=== PATIENT | female | born 1935 | race Two or more races ===

== ENCOUNTER 2018-09-26 15:10 | Emergency (ER) | payer OTHER ==
[~2018-09-26] VITALS: Ht 152.4 cm; Wt 53.5 kg
[2018-09-26] MEDS ORDERED: SYNTHROID88 MCG (15:52)
[2018-09-26] MEDS ORDERED: NORVASC2.5 M1 (15:53)
[2018-09-26] MEDS ORDERED: PLAVIX75 MG (15:53)
== END 2018-09-26 18:42 | disposition home or self-care (01) ==
LOC: ER 15:10
DX: S00.03XA Contusion of scalp, initial encounter (principal); S70.02XA Contusion of left hip, initial encounter; W01.198A Fall on same level from slipping, tripping and stumbling with subsequent striking against other object, initial encounter; Y93.89 Activity, other specified; Y92.238 Other place in hospital as the place of occurrence of the external cause; Y99.8 Other external cause status

== ENCOUNTER 2023-06-27 09:15 | Outpatient (CLI) | payer OTHER ==
[~2023-06-27 09:15] MED LIST: NORVASC2.5 M1; PLAVIX75 MG; SYNTHROID88 MCG
== END 2023-06-27 09:23 | disposition home or self-care (01) ==
LOC: TOM 09:15
PROVIDERS: ATTEND Internal Medicine
DX: M54.50 Low back pain, unspecified (principal)

== ENCOUNTER 2023-12-01 12:45 | Outpatient (CLI) | payer OTHER | END 2023-12-01 12:54 | disposition home or self-care (01) | LOC: MRI 12:45 | PROVIDERS: ATTEND Anesthesiology Pain Medicine | DX: M99.63 Osseous and subluxation stenosis of intervertebral foramina of lumbar region (principal); M48.061 Spinal stenosis, lumbar region without neurogenic claudication | CPT/HCPCS: 72148 ==

== ENCOUNTER 2023-12-26 08:25 | Outpatient (CLI) | payer OTHER ==
[2023-12-26 09:37] LABS: HEMATOCRIT 36.7 % (36.0-45.00); HEMOGLOBIN 12.2 g/dL (12.0-15.00); MEAN CELL VOLUME 88.6 fL (80.00-100.00); MEAN CORPUSCULAR HEMOGLOBIN 29.5 pg (27.00-32.0); MEAN CORPUSCULAR HGB CONC 33.3 g/dl (32.0-36.0); PLATELET COUNT 168 K/uL (150-450); RED BLOOD COUNT 4.14 M/uL (4.00-6.00); RED CELL DISTRIBUTION WIDTH 16.5 % (11.5-14.5)
[2023-12-26 09:40] LABS: PH,URINE 5.5 (5.0-8.0); URINE APPEARANCE Clear; URINE BILIRRUBIN Negative (NEGATIVE); URINE BLOOD Negative; URINE COLOR Yellow; URINE KETONE Negative (NEGATIVE); URINE LEUKOCYTE Trace; URINE NITRATE Positive; URINE PROTEIN Negative (NEGATIVE); URINE UROBILINOGEN 0.2 E.U./dl
[2023-12-26 09:41] LABS: URINE EPITHELIAL CELLS 8.8 uL (0.0-38.8); URINE RBC 20.3 uL (0.0-20.8); URINE WBC 30.2 uL (0.0-23.2)
[2023-12-26 09:46] LABS: URINE BACTERIA > 9821.5 uL (0.0-1933); URINE GLUCOSE >=1000 MG/DL (NEGATIVE)
[2023-12-26 10:40] LABS: ALBUMIN 3.7 gm/dL (3.4-5.0); BILIRUBIN TOTAL 0.37 mg/dL (0.3-1.2); CALCIUM 9.4 mg/dL (8.5-10.1); CREATININE SERUM 1.26 mg/dL (0.55-1.02); GFR 40.17; GLOBULINA 2.8 G/DL (2.4-3.5); POTASSIUM 4.24 mEq/L (3.5-5.1); TOTAL PROTEIN 6.5 gm/dL (6.4-8.2)
== END 2023-12-26 14:15 | disposition home or self-care (01) ==
LOC: LAB 08:25
PROVIDERS: ATTEND Anesthesiology Pain Medicine
DX: M99.63 Osseous and subluxation stenosis of intervertebral foramina of lumbar region (principal); M48.061 Spinal stenosis, lumbar region without neurogenic claudication; Z01.818 Encounter for other preprocedural examination; I10 Essential (primary) hypertension

== ENCOUNTER 2024-01-15 07:45 | Outpatient (CLI) | payer OTHER ==
[~2024-01-15 07:45] MED LIST changes: +ATORVASTATIN CA10 MG PO; +CARBIDOPA-LEVO1 EAC4 PO; +COZAAR50 MG PO; +GLIMEPIRIDE2 M1 PO; +HYDRALAZINE HC100 MG PO; +LOTENSIN20 MG PO
[2024-01-15 08:55] LABS: INR 1.06; PARTIAL THROMBOPLASTIN TIME 30.7 SECONDS (22.0-34.0)
[2024-01-15 09:00] LABS: PROTHROMBIN TIME 11.5 SECONDS (9.0-11.5)
== END 2024-01-15 07:49 | disposition home or self-care (01) ==
LOC: LAB 07:45
PROVIDERS: ATTEND Anesthesiology Pain Medicine
DX: M99.63 Osseous and subluxation stenosis of intervertebral foramina of lumbar region (principal); M48.061 Spinal stenosis, lumbar region without neurogenic claudication; Z01.818 Encounter for other preprocedural examination

== ENCOUNTER 2024-01-16 08:45 | Day surgery (SDC) | payer OTHER ==
[2024-01-01 09:52] VITALS: BP 160/100
[2024-01-01 10:08] LABS: INR 1.07; PARTIAL THROMBOPLASTIN TIME 22.7 SECONDS (22.0-34.0); PROTHROMBIN TIME 11.6 SECONDS (9.0-11.5)
[~2024-01-16] VITALS: Ht 152.4 cm; Wt 54.4 kg
[2024-01-16] MEDS ORDERED: IOHEXOL 240 mgI/ML 100ML BOTT IV ONE (10:35)
[2024-01-16] MEDS ORDERED: DEXAMETHASONE SODIUM PHOSPHATE 4 MG/ML VIAL ONE (10:39)
[2024-01-16] MEDS ORDERED: BUPIVACAINE HCL/MPF 0.5% 30ML VIAL ONE (11:20)
[2024-01-16] MEDS ORDERED: ENALAPRILAT DIHYDRATE 1.25 MG/ML VIAL IV ONE ×2 (13:06→13:10)
[2024-01-16] MEDS ORDERED: hydrALAZINE HCL 20 MG VIAL ONE (14:30)
[2024-01-16] MEDS ORDERED: hydrALAZINE HCL 20 MG VIAL IV ONE (14:30)
== END 2024-01-16 17:50 | disposition home or self-care (01) ==
LOC: CIR.AMB 08:45
PROVIDERS: ATTEND Anesthesiology Pain Medicine
DX: M99.63 Osseous and subluxation stenosis of intervertebral foramina of lumbar region (principal); M48.061 Spinal stenosis, lumbar region without neurogenic claudication

== ENCOUNTER 2024-11-23 17:56 | Emergency (ER) | payer OTHER ==
[~2024-11-23] VITALS: Ht 152.4 cm; Wt 50.8 kg
[2024-11-23 18:58] LABS: BASO % 0.5 % (0.1-1.2); EOS # 0.14 (0.04-0.54); EOS % 1.4 % (0.7-7.0); LYMPH # 2.15 (1.18-3.74); LYMPH % 20.8 % (19.3-53.1); MEAN PLATELET VOLUME 10.60 fl (9.4-12.4); MONO # 1.12 (0.24-0.82); MONO % 10.8 % (4.7-12.5); NEUT # 6.85 (1.56-6.13); NEUT % 66.1 % (34.0-71.1); RED CELL DISTRIBUTION WIDTH 15.1 % (11.6-14.4)
[2024-11-23 19:27] LABS: URINE APPEARANCE Turbid; URINE BILIRRUBIN Negative (NEGATIVE); URINE BLOOD Negative; URINE COLOR Yellow; URINE KETONE Negative (NEGATIVE); URINE LEUKOCYTE Large; URINE NITRATE Negative; URINE UROBILINOGEN 0.2 E.U./dl
[2024-11-23 19:28] LABS: URINE BACTERIA 130.7 uL (0.0-1933); URINE EPITHELIAL CELLS 22.6 uL (0.0-38.8); URINE RBC 11.5 uL (0.0-20.8)
[2024-11-23 19:29] LABS: ALT/SGPT 29.0 U/L (12-78); AST/SGOT 18.0 U/L (15-37); BILIRUBIN TOTAL 0.41 mg/dL (0.3-1.2); BUN CREA RATIO 22.0 (7.0-25.0); CREATININE SERUM 1.53 mg/dL (0.55-1.02); GFR 32.03; GLOBULINA 3.3 G/DL (2.4-3.5); GLUCOSE FASTING 135.0 mg/dL (65-100); OSMOLALITY SERUM 298.0 MOSM/KG (275-295)
[2024-11-23 19:42] LABS: URINE CAST 0.14 uL (0.0-1.40); URINE GLUCOSE >=1000 MG/DL (NEGATIVE); URINE PROTEIN 100 (NEGATIVE); URINE WBC > 5548.3 uL (0.0-23.2)
[2024-11-23 19:46] LABS: TYPE CELLS SQUAMOUS; URINE YEAST MANY /hpf
[2024-11-23] MEDS ORDERED: BACTRIM DS TAB1 EACH PO (20:18)
== END 2024-11-23 20:26 | disposition home or self-care (01) ==
LOC: ER 17:56
PROVIDERS: Emergency Medicine
DX: N39.0 Urinary tract infection, site not specified (principal); I10 Essential (primary) hypertension; E03.8 Other specified hypothyroidism; E11.9 Type 2 diabetes mellitus without complications